=== PATIENT | male | born 1985 | race Caucasian/White ===

== ENCOUNTER 2018-11-24 13:04 | Inpatient (IN) ==
[2018-11-24] MEDS ORDERED: DESYREL PO PRN (13:46)
[2018-11-24] MEDS ORDERED: ZOFRAN IV PRN (13:46)
[2018-11-24] MEDS ORDERED: PHENOBARBITAL IV PRN (13:46)
[2018-11-24] MEDS ORDERED: SALINE LOCK IV FLUID XX ONE (13:46)
[2018-11-24] MEDS ORDERED: D5W 1,000 ML IV PRN (13:46)
[2018-11-24] MEDS ORDERED: IMODIUM PO PRN (13:46)
[2018-11-24] MEDS ORDERED: DULCOLAX PR PRN (13:46)
[2018-11-24] MEDS ORDERED: SENOKOT PO PRN (13:46)
[2018-11-24] MEDS ORDERED: MAALOX PLUS LIQUID PO PRN (13:46)
[2018-11-24] MEDS ORDERED: TUBERSOL ID ONE (13:46)
[2018-11-24] MEDS ORDERED: BENTYL PO PRN (13:46)
[2018-11-24 14:53] LABS: UR AMPHETAMINES QUAL PRESUMPTIVE POSITIVE (NONE DETECT); UR BARBITUATES QUAL NONE DETECTED (NONE DETECT); UR BENZODIAZEPIN QUAL PRESUMPTIVE POSITIVE (NONE DETECT); UR CANNABINOIDS QUAL NONE DETECTED (NONE DETECT); UR COCAINE QUAL NONE DETECTED (NONE DETECT); UR METHADONE QUAL NONE DETECTED (NONE DETECT); UR METHAMPHETAMINE QUAL NONE DETECTED (NONE DETECT); UR OPIATES QUAL NONE DETECTED (NONE DETECT); UR OXYCODONE QUAL NONE DETECTED (NONE DETECT); UR PCP QUAL NONE DETECTED (NONE DETECT); UR PROPOXYPHENE QUAL NONE DETECTED (NONE DETECT); UR TCA QUAL NONE DETECTED (NONE DETECT)
[2018-11-24 14:56] LABS: HEMATOCRIT 43.2 % (42.0-52.0); HEMOGLOBIN 15.8 g/dL (14.0-18.0); MCH 33.8 PG (27-31); MCHC 36.6 g/dL (33-37); MCV 92.3 FL (81-99); RBC 4.68 XMIL (4.7-6.1); RDW 12.5 % (11.5-14.5); WBC 9.29 X1000 (4.8-10.8)
[2018-11-24] MEDS ORDERED: M.V.I.-12 10 ML, FOLIC ACID 1 MG, MAGNESIUM SULFATE 1 GM, THIAMINE 100 MG in NS 1,000 ML IV ONE (15:00)
[2018-11-24 15:03] LABS: AMYLASE 53 U/L (20-200); LIPASE 19 U/L (13-60)
[2018-11-24 15:07] LABS: AGAP 11; ALBUMIN 4.1 g/dL (3.5-5.0); ALKALINE PHOSPHATASE 83 U/L (32-122); BUN 12 mg/dL (8-22); CHLORIDE 100 mmol/L (98-107); COSMO 282; CREATININE 0.7 mg/dL (0.7-1.2); ESTIMATED GFR > 60; GLUCOSE 83 mg/dL (70-104); GOT 22 U/L (10-34); GPT 19 U/L (10-44); POTASSIUM 4.2 mmol/L (3.5-5.1); SODIUM 142 mmol/L (136-145); TCO2 32 mmol/L (25-35); TOTAL PROTEIN 7.2 g/dL (6.3-8.3)
[2018-11-24] MEDS: LIBRIUM PO SCH ×2 (15:08→21:05)
[2018-11-24] MEDS: NICODERM PATCH TD PRN (15:08)
[2018-11-24 15:19] LABS: INR 0.99; PROTIME 13.6 Seconds (11.0-16.0)
[2018-11-24] MEDS: ATARAX PO PRN (17:03)
[2018-11-24] MEDS: TYLENOL PO PRN (17:04)
[2018-11-24] MEDS: SEROQUEL PO PRN (21:23)
[2018-11-24] MEDS: MOTRIN PO PRN (21:23)
[2018-11-24] MEDS: ROBAXIN PO PRN (21:23)
[2018-11-25] MEDS: LIBRIUM PO SCH ×5 (02:30→21:19)
[2018-11-25] MEDS: PROTONIX PO SCH (06:30)
--- NOTE | 2018-11-25 07:25 | HISTORY AND PHYSICAL ---
CHIEF COMPLAINT: Nausea and vomiting. HISTORY OF PRESENT ILLNESS: The patient is a 33-year-old male who presented to [facility] secondary to polysubstance use, abuse, and withdrawal. The patient states that he has been trying to stop but his withdrawal symptoms become too severe with nausea, vomiting, abdominal pain, and myalgias. SOCIAL HISTORY: The patient is unemployed. Lives at [*] He is currently homeless due to his drug use and abuse. PAST MEDICAL HISTORY: No active medical problems other than anxiety and depression. He has frequent episodes of seizures and blackouts due to withdrawal as well as likely due to use. REVIEW OF SYSTEMS: CIWA score is 26 secondary to nausea with frequent heavy dry heaves, tremors, paresthesias, skin crawling, headaches, dizziness, anxiety, very fidgety, restless, nervous, anxious, unable to sit still. He is having tremors. He has mild auditory hallucinations. Denies any true fevers. Denies any change in vision, focalized numbness or weakness in his extremities. He denies dysuria, frequency, constipation, melena, or hematochezia. Denies any skin rashes. SUBSTANCE ABUSE HISTORY: As noted, patient has had blackouts and seizures that were drug-related. States his drug use is hopeless. He is currently homeless due to it. He wants to stop everything, started in a [facility] house in 2013 but subsequently has started reusing again. Started drinking at age 13, currently is up to a half a gallon of vodka a day. Started depressants at 14, currently takes as many as he can afford. Started methamphetamine at age 33, currently smokes a gram a day. Started Suboxone at age 33, currently is on a film a day. FAMILY HISTORY: Positive for substance use. PHYSICAL EXAMINATION: VITAL SIGNS: Reviewed and stable. GENERAL: Patient is awake, alert, oriented, although he is in obvious withdrawal symptoms. He is fidgety, frequently moving about. HEENT: Normocephalic. NECK: Supple. CARDIOVASCULAR: Regular rate. CHEST: Clear. ABDOMEN: Soft and nondistended. EXTREMITIES: Moves all extremities. ASSESSMENT: 1. Nausea and vomiting. 2. Abdominal pain. 3. Myalgias. 4. Paresthesias. 5. Paroxysmal sweating. 6. Alcohol abuse and withdrawal. 7. Polysubstance use, abuse, and withdrawal. PLAN: We will admit the patient to [facility], place on high-dose Librium taper, use Suboxone p.r.n. for acute withdrawal. We will continue to wean. Continue counseling. Further orders as needed. cc: Neto Levine MD
[2018-11-25] MEDS: THERA M PLUS PO SCH (08:20)
[2018-11-25] MEDS: SUBOXONE 2 MG/0.5 MG FILM SL SCH ×3 (08:20→17:14)
[2018-11-25] MEDS: FOLIC ACID PO SCH (08:20)
[2018-11-25] MEDS: VITAMIN B-1 PO SCH (08:20)
[2018-11-25] MEDS: NICODERM PATCH TD PRN (15:02)
[2018-11-25] MEDS: ATARAX PO PRN (19:15)
[2018-11-25] MEDS: MOTRIN PO PRN (21:20)
[2018-11-25] MEDS: SEROQUEL PO PRN (21:20)
[2018-11-25] MEDS: ROBAXIN PO PRN (21:20)
[2018-11-25] MEDS: ZOFRAN ODT PO PRN (21:20)
[2018-11-26] MEDS: LIBRIUM PO SCH ×4 (03:05→20:33)
[2018-11-26] MEDS: PROTONIX PO SCH (07:27)
[2018-11-26] MEDS: THERA M PLUS PO SCH (08:35)
[2018-11-26] MEDS: FOLIC ACID PO SCH (08:35)
[2018-11-26] MEDS: ZOFRAN ODT PO PRN ×2 (08:35→15:33)
[2018-11-26] MEDS: ROBAXIN PO PRN ×2 (08:35→15:33)
[2018-11-26] MEDS: VITAMIN B-1 PO SCH (08:35)
[2018-11-26] MEDS: SUBOXONE 2 MG/0.5 MG FILM SL SCH ×3 (08:36→17:58)
[2018-11-26] MEDS: MOTRIN PO PRN (13:31)
[2018-11-26] MEDS: NICODERM PATCH TD PRN (15:16)
[2018-11-26] MEDS: TYLENOL PO PRN (15:32)
[2018-11-26] MEDS: ATARAX PO PRN (15:33)
[2018-11-26] MEDS ORDERED: LIBRIUM PO ONE (18:50)
[2018-11-26] MEDS: SEROQUEL PO PRN (20:36)
--- NOTE | 2018-11-26 22:57 | PROGRESS NOTE ---
DATE: 11/26/2018 SUBJECTIVE: The patient still does not feel well, not sleeping well, still having lots of muscle aches and fatigue, but overall he does note that he is improved from admission. PHYSICAL EXAMINATION: Vital signs: Temperature 97 degrees, pulse 68, respiratory 18, BP 118/69. General: The patient is awake, very pleasant to talk with. He is in no current distress although does appear quite ill due to withdrawal symptoms. HEENT: Normocephalic. Neck: Supple. CARDIOVASCULAR: Regular rate. Chest: Clear, nonlabored. Abdomen: Soft, nondistended. Extremities: Moves all extremities. ASSESSMENT: 1. Nausea and vomiting with abdominal pain. 2. Myalgias. 3. Paresthesias. 4. Paroxysmal sweating. 5. Opiate abuse withdrawal and stabilization. 6. Alcohol abuse withdrawal and stabilization. 7. Polysubstance abuse with benzodiazepines and methamphetamine. PLAN: We will continue the patient in the hospital. We will continue high-dose Librium taper. We will continue 2 mg of Suboxone today and hopefully can begin weaning. Further orders as needed. cc: Neto Levine MD
[2018-11-27] MEDS: LIBRIUM PO SCH ×4 (01:13→22:10)
[2018-11-27] MEDS: PROTONIX PO SCH (06:30)
[2018-11-27] MEDS: FOLIC ACID PO SCH (09:14)
[2018-11-27] MEDS: SUBOXONE 2 MG/0.5 MG FILM SL SCH ×3 (09:14→20:24)
[2018-11-27] MEDS: THERA M PLUS PO SCH (09:14)
[2018-11-27] MEDS: VITAMIN B-1 PO SCH (09:14)
[2018-11-27] MEDS: ATARAX PO PRN ×2 (12:44→19:51)
[2018-11-27] MEDS: ROBAXIN PO PRN ×2 (12:44→19:51)
[2018-11-27] MEDS: NICODERM PATCH TD PRN (15:50)
--- NOTE | 2018-11-28 01:45 | PROGRESS NOTE ---
DATE: 11/25/2018 Patient seen examined by myself on the . Note inadvertently missed. SUBJECTIVE: Patient still feels terrible, did not sleep. Still having muscle aches, abdominal pain, mild diarrhea. Denies any constipation. Denies fevers or chills. PHYSICAL EXAMINATION: Vital Signs: Reviewed and stable. General: He is awake, alert, currently in no distress although very ill appearing due to withdrawal. HEENT: Normocephalic. Neck: Supple. Cardiovascular: Regular rate. Chest: Clear. Abdomen: Soft. Extremities: Moves all extremities. ASSESSMENT: 1. Nausea and vomiting. 2. Abdominal pain. 3. Myalgias. 4. Paresthesias. 5. Alcohol abuse, withdrawal and stabilization. PLAN: We will continue patient in the hospital. Continue to wean. Continue counseling. Further orders as needed. cc: Neto Levine MD
--- NOTE | 2018-11-28 01:46 | PROGRESS NOTE ---
DATE: 11/27/2018 SUBJECTIVE: Patient overall states he is feeling better, still having muscle aches. Still is not sleeping well. Nausea is improved. He is actually ready to eat breakfast. Denies any chest pain, palpitations. PHYSICAL EXAMINATION: Vital Signs: Reviewed and stable. Currently is awake, alert, in no respiratory distress. Temperature 97 degrees, pulse 55, respiratory 20, BP 127/64. General: Patient is in no current respiratory distress. HEENT: Normocephalic. Neck: Supple. Cardiovascular: Regular rate. Chest: Clear and nonlabored. Abdomen: Soft, nondistended, nontender. Extremities: Moves all extremities. ASSESSMENT: 1. Polysubstance use, and abuse and withdrawal. We will continue Librium as well as Subutex taper. 2. Nausea, vomiting. 3. Abdominal pain. 4. Myalgias. PLAN: We will continue patient in the hospital. TIME SPENT: Greater than 30 minutes was spent in total counseling today. Discussed with patient use and abuse. We will continue to wean. Further orders as needed. cc: Neto Levine MD
[2018-11-28] MEDS: PROTONIX PO SCH (06:26)
[2018-11-28] MEDS: LIBRIUM PO SCH ×3 (06:26→22:03)
[2018-11-28] MEDS: SUBOXONE 2 MG/0.5 MG FILM SL SCH ×2 (09:25→21:09)
[2018-11-28] MEDS: VITAMIN B-1 PO SCH (09:25)
[2018-11-28] MEDS: FOLIC ACID PO SCH (09:25)
[2018-11-28] MEDS: THERA M PLUS PO SCH (09:25)
[2018-11-28] MEDS: ATARAX PO PRN (11:14)
[2018-11-28] MEDS: ROBAXIN PO PRN (11:15)
--- NOTE | 2018-11-28 18:09 | PROGRESS NOTE ---
DATE: 11/28/2018 SUBJECTIVE: Patient notes that overall he still feels terrible but is actually improving very slightly. Notes his muscle aches and tremors are better. PHYSICAL: Vital Signs: Reviewed, temperature 97.6 degrees, pulse 60, respiratory 18, BP 116/72. General: Patient is very pleasant talk with. HEENT: Normocephalic. Neck: Supple. CARDIOVASCULAR: Regular rate, no murmurs. Chest: Clear, nonlabored. Abdomen: Soft, nondistended, nontender. Extremities: Moves all extremities. ASSESSMENT: 1. Nausea, vomiting. 2. Abdominal pain . 3. Myalgias. 4. Paresthesias. 5. Paroxysmal sweating. PLAN: Will continue patient in the hospital, will continue to wean Librium and Suboxone. Further orders as needed. cc: Neto Levine MD
[2018-11-28] MEDS ORDERED: SUBOXONE 2 MG/0.5 MG FILM SL ONE (18:23)
[2018-11-28] MEDS: NICODERM PATCH TD PRN (18:29)
[2018-11-28] MEDS: ZOFRAN ODT PO PRN (18:31)
[2018-11-28] MEDS ORDERED: SUBOXONE 2 MG/0.5 MG FILM SL SCH (21:00)
[2018-11-29] MEDS: LIBRIUM PO SCH ×3 (06:18→21:03)
[2018-11-29] MEDS: PROTONIX PO SCH (06:18)
[2018-11-29] MEDS: VITAMIN B-1 PO SCH (09:08)
[2018-11-29] MEDS: THERA M PLUS PO SCH (09:08)
[2018-11-29] MEDS: SUBOXONE 2 MG/0.5 MG FILM SL SCH ×2 (09:08→20:36)
[2018-11-29] MEDS: FOLIC ACID PO SCH (09:08)
[2018-11-29] MEDS: ATARAX PO PRN (12:47)
[2018-11-29] MEDS: ROBAXIN PO PRN (12:48)
--- NOTE | 2018-11-29 19:04 | PROGRESS NOTE ---
DATE: 11/29/2018 SUBJECTIVE: Patient states he feels okay. He has continued to improve, although slowly. Denies any fevers or chills. PHYSICAL EXAMINATION: Vital Signs: Reviewed and stable. General: He is awake, alert. He is in no distress. HEENT: Normocephalic. Neck: Supple. Cardiovascular: Regular rate. Chest: Clear. Abdomen: Soft. Extremities: Moves all extremities. ASSESSMENT: 1. Nausea and vomiting. 2. Abdominal pain. 3. Myalgias. 4. Paresthesias. 5. Paroxysmal sweating. 6. Alcohol abuse, withdrawal and stabilization. 7. Opiate abuse, withdrawal and stabilization. PLAN: We will continue patient in the hospital. We will decrease his Librium and Suboxone again today. In the morning, we will change to Subutex 1 mg twice daily and Librium 25 twice daily, so he can be discharged after 1 dose of each on Friday. cc: Neto Levine MD
[2018-11-30] MEDS: LIBRIUM PO SCH (05:03)
[2018-11-30] MEDS: PROTONIX PO SCH (06:21)
[2018-11-30 07:27] VITALS: BP 103/76
[2018-11-30] MEDS: FOLIC ACID PO SCH ×2 (07:50→10:22)
[2018-11-30] MEDS: VITAMIN B-1 PO SCH ×2 (07:50→10:22)
[2018-11-30] MEDS: THERA M PLUS PO SCH ×2 (07:50→10:22)
[2018-11-30] MEDS: SUBOXONE 2 MG/0.5 MG FILM SL SCH (07:50)
[2018-11-30] MEDS ORDERED: LIBRIUM PO SCH (09:00)
[2018-11-30] MEDS ORDERED: SUBOXONE 2 MG/0.5 MG FILM SL SCH (09:00)
[2018-11-30] MEDS: ATARAX PO PRN (11:05)
[2018-11-30] MEDS: ROBAXIN PO PRN (11:05)
[2018-11-30] MEDS ORDERED: SUBUTEX SL SCH (21:00)
== END 2018-11-30 16:06 | disposition home or self-care (01) | DRG 897 ==
LOC: P.MEDSURG 14:04
PROVIDERS: ADMIT Family Medicine; ATTEND Family Medicine
CPT/HCPCS: 80053; 80104; 80301; 80305; 80307; 80320; 82055; 82150; 83690; 85027; 85610; 86580; A9270; G0431; G0434; G0477; G0480; G6040; J3411; J3475; J7030